=== PATIENT | male | born 1945 | race Caucasian/White ===

== ENCOUNTER 2020-06-21 08:16 | Day surgery (SDC) | payer MEDICARE ==
[~2020-06-21 08:16] MED LIST: Cefuroxime 10 MG/ML SYRINGE EYELF SCH; Lidocaine 1% PF 2 ML SDV INJECT SCH; Pilocarpine 4% Ophth Soln 15 ML Bot EYELF SCH
[2020-06-21] MEDS: Polymyxin B/Trimethoprim 10 ML Bottle EYELF SCH ×3 (09:00→10:43)
[2020-06-21] MEDS: Brimonidine 0.2% Ophth Soln 5 ML Bottle EYELF SCH ×3 (09:06→10:43)
[2020-06-21] MEDS: Phenylephrine 2.5% Ophth Soln 2 ML Bot EYELF SCH ×5 (09:10→10:18)
[2020-06-21] MEDS: Tropicamide 1% Ophth Soln 15 ML Bottle EYELF SCH ×4 (09:16→10:03)
--- NOTE | 2020-06-21 09:18 | PCM.PREANE ---
Preanesthetic Assessment - Procedure Proposed Procedure: cataract left eye - Anesthesia/Transfusion/Family Hx Anesthesia History: Prior Anesthesia Without Reaction Family History of Anesthesia Reaction: No Transfusion History: No Prior Transfusion(s) - Review of Systems General: No Symptoms Pulmonary: Cough (post nasal drip) Cardiovascular: No Symptoms Gastrointestinal: No Symptoms Neurological: No Symptoms Other: Reports: Sinus Problem - Physical Assessment NPO Status Date: 06/20/20 NPO Status Time: 18:30 (sip with pills this am) Vital Signs: 129/82 53 98% 97.9 16 Height: 6 ft 1 in Weight: 83.461 kg ASA Class: 2 Mental Status: Alert & Oriented x3 Airway Class: Mallampati = 1 Dentition: Reports: Caries Thyro-Mental Finger Breadths: 3 Mouth Opening Finger Breadths: 3 ROM/Head Extension: Full Lungs: Clear to Auscultation, Normal Respiratory Effort Cardiovascular: Regular Rate, Regular Rhythm - Allergies Allergies/Adverse Reactions: Allergies Allergy/AdvReac Type Severity Reaction Status Date / Time codeine Allergy Cannot Verified 06/20/20 14:11 Remember - Blood Blood Available: No - Acknowledgements Anesthesia Type Planned: MAC Pt an Appropriate Candidate for the Planned Anesthesia: Yes Alternatives and Risks of Anesthesia Discussed w Pt/Guardian: Yes Pt/Guardian Understands and Agrees with Anesthesia Plan: Yes PreAnesthesia Questionnaire Gastrointestinal History: Reports: GERD Genitourinary History: Reports: Prostate Disorder, Renal Calculus - Past Surgical History HEENT Surgical History: Reports: Adenoidectomy, Tonsillectomy GI Surgical History: Reports: Colonoscopy, Hernia, Inguinal - SUBSTANCE USE Tobacco Use Status *Q: Never Tobacco User Tobacco Use Within Last Twelve Months: No Second Hand Smoke Exposure: No Days Per Week of Alcohol Use: 0 Recreational Drug Use History: No - HOME MEDS Home Medications: Home Meds Finasteride 5 mg PO DAILY 10/03/14 [History] Tamsulosin [Tamsulosin 24 Hr] 0.4 mg PO BID 10/03/14 [History] B2/Vits A,C,E/Lut/Zeaxanth/Min [Icaps] 1 tab PO DAILY 08/02/16 [History] Carboxymethylcellulose Sodium [Artificial Tears] 1 drop EYEBOTH ASDIRECTED PRN 06/20/20 [History] Omeprazole Magnesium [Prilosec Otc] 20 mg PO DAILY 06/20/20 [History] Solifenacin Succinate 10 mg PO DAILY 06/20/20 [History] - CURRENT (IN HOUSE) MEDS Current Meds: Current Medications Brimonidine Tartrate (Alphagan 0.2% Ophth Soln) 0 ml EYELF ASDIRECTED RUBIO Stop: 06/21/20 23:00 Last Admin: 06/21/20 09:06 Dose: 1 drop Documented by: Cefuroxime Sodium (Zinacef) 0 mg EYELF ASDIRECTED RUBIO Stop: 06/21/20 23:00 Lidocaine HCl (Xylocaine-Mpf 1%) 0 ml INJECT ASDIRECTED RUBIO Stop: 06/21/20 23:00 Phenylephrine HCl (Zhao-Synephrine 2.5% Ophth Soln) 0 ml EYELF ASDIRECTED RUBIO Stop: 06/21/20 23:00 Last Admin: 06/21/20 09:10 Dose: 1 drop Documented by: Pilocarpine HCl (Pilocar 4% Ophth Soln) 0 ml EYELF ASDIRECTED RUBIO Stop: 06/21/20 23:00 Polymyxin/Trimethoprim Sulfate (Polytrim Ophth Soln) 0 ml EYELF ASDIRECTED RUBIO Stop: 06/21/20 23:00 Last Admin: 06/21/20 09:00 Dose: 1 drop Documented by: Tetracaine HCl (Tetracaine 0.5% Steri-Unit Jeanette) 0 ml EYEBOTH ASDIRECTED RUBIO Stop: 06/21/20 23:00 Tropicamide (Mydriacyl 1% Ophth Soln) 0 ml EYELF ASDIRECTED RUBIO Stop: 06/21/20 23:00
[2020-06-21] MEDS: Tetracaine HCl/PF 0.5% 4 ML Bottle EYEBOTH SCH ×4 (10:06→10:28)
--- NOTE | 2020-06-21 10:45 | PCM48HPAN ---
Post Anesthesia Note - EVALUATION WITHIN 48HRS OF ANESTHETIC Vital Signs in Normal Range: Yes Patient Participated in Evaluation: Yes Respiratory Function Stable: Yes Airway Patent: Yes Cardiovascular Function Stable: Yes Hydration Status Stable: Yes Pain Control Satisfactory: Yes Nausea and Vomiting Control Satisfactory: Yes Mental Status Recovered: Yes Vital Signs: Last Vital Signs Temp 36.6 C 06/21/20 08:45 Pulse 53 L 06/21/20 08:45 Resp 16 06/21/20 08:45 BP 129/82 06/21/20 08:45 Pulse Ox 98 06/21/20 08:45
[2020-06-21 11:24] VITALS: BP 110/67; PULSE 50
== END 2020-06-21 11:15 | disposition home or self-care (01) ==
LOC: JD.SDS 08:16
PROVIDERS: ATTEND Ophthalmology
DX: H25.813 Combined forms of age-related cataract, bilateral (principal); H40.003 Preglaucoma, unspecified, bilateral; H44.23 Degenerative myopia, bilateral; H43.813 Vitreous degeneration, bilateral; H16.103 Unspecified superficial keratitis, bilateral; H16.223 Keratoconjunctivitis sicca, not specified as Sjogren's, bilateral; Z88.5 Allergy status to narcotic agent; Z79.899 Other long term (current) drug therapy; Z98.890 Other specified postprocedural states
CPT/HCPCS: 66984; C1780; J0697; J2001

== ENCOUNTER 2020-07-31 08:17 | Day surgery (SDC) | payer MEDICARE ==
[~2020-07-31 08:17] MED LIST changes: -Cefuroxime 10 MG/ML SYRINGE EYELF SCH; +Cefuroxime 10 MG/ML SYRINGE EYERT SCH; -Pilocarpine 4% Ophth Soln 15 ML Bot EYELF SCH; +Pilocarpine 4% Ophth Soln 15 ML Bot EYERT SCH
[2020-07-31] MEDS: Polymyxin B/Trimethoprim 10 ML Bottle EYERT SCH ×3 (09:25→11:18)
--- NOTE | 2020-07-31 09:29 | PCM.PREANE ---
Preanesthetic Assessment - Procedure Proposed Procedure: Rt eye cataract excision /c IOL - Anesthesia/Transfusion/Family Hx Anesthesia History: Prior Anesthesia Without Reaction Transfusion History: No Prior Transfusion(s) - Review of Systems General: No Symptoms Pulmonary: Cough Cardiovascular: No Symptoms Gastrointestinal: No Symptoms Neurological: No Symptoms Other: Reports: Sinus Problem - Physical Assessment NPO Status Date: 07/30/20 NPO Status Time: 18:30 Vital Signs: Last Vital Signs Temp 98.0 F 07/31/20 09:10 Pulse 51 L 07/31/20 09:10 Resp 16 07/31/20 09:10 BP 131/77 07/31/20 09:10 Pulse Ox 97 07/31/20 09:10 Height: 1.83 m Weight: 83.461 kg ASA Class: 2 Mental Status: Alert & Oriented x3 Airway Class: Mallampati = 1 Dentition: Reports: Caries Thyro-Mental Finger Breadths: 3 Mouth Opening Finger Breadths: 3 ROM/Head Extension: Full Lungs: Clear to Auscultation, Normal Respiratory Effort Cardiovascular: Regular Rate, Regular Rhythm - Allergies Allergies/Adverse Reactions: Allergies Allergy/AdvReac Type Severity Reaction Status Date / Time codeine Allergy Cannot Verified 07/30/20 13:36 Remember - Acknowledgements Anesthesia Type Planned: MAC Pt an Appropriate Candidate for the Planned Anesthesia: Yes Alternatives and Risks of Anesthesia Discussed w Pt/Guardian: Yes Pt/Guardian Understands and Agrees with Anesthesia Plan: Yes PreAnesthesia Questionnaire Gastrointestinal History: Reports: GERD Genitourinary History: Reports: Prostate Disorder, Renal Calculus - Past Surgical History HEENT Surgical History: Reports: Adenoidectomy, Tonsillectomy GI Surgical History: Reports: Colonoscopy, Hernia, Inguinal - HOME MEDS Home Medications: Home Meds Finasteride 5 mg PO DAILY 10/03/14 [History] Tamsulosin [Tamsulosin 24 Hr] 0.4 mg PO BID 10/03/14 [History] B2/Vits A,C,E/Lut/Zeaxanth/Min [Icaps] 1 tab PO DAILY 08/02/16 [History] Carboxymethylcellulose Sodium [Artificial Tears] 1 drop EYEBOTH ASDIRECTED PRN 06/20/20 [History] Omeprazole Magnesium [Prilosec Otc] 20 mg PO DAILY 06/20/20 [History] Solifenacin Succinate 10 mg PO DAILY 06/20/20 [History] - CURRENT (IN HOUSE) MEDS Current Meds: Current Medications Brimonidine Tartrate (Alphagan 0.2% Ophth Soln) 0 ml EYERT ASDIRECTED RUBIO Stop: 07/31/20 18:00 Cefuroxime Sodium (Zinacef) 0 mg EYERT ASDIRECTED RUBIO Stop: 07/31/20 18:00 Lidocaine HCl (Xylocaine-Mpf 1%) 0 ml INJECT ASDIRECTED RUBIO Stop: 07/31/20 18:00 Phenylephrine HCl (Zhao-Synephrine 2.5% Ophth Soln) 0 ml EYERT ASDIRECTED RUBIO Stop: 07/31/20 18:00 Pilocarpine HCl (Pilocar 4% Ophth Soln) 0 ml EYERT ASDIRECTED RUBIO Stop: 07/31/20 18:00 Polymyxin/Trimethoprim Sulfate (Polytrim Ophth Soln) 0 ml EYERT ASDIRECTED RUBIO Stop: 07/31/20 18:00 Tetracaine HCl (Tetracaine 0.5% Steri-Unit Jeanette) 0 ml EYEBOTH ASDIRECTED RUBIO Stop: 07/31/20 18:00 Tropicamide (Mydriacyl 1% Ophth Soln) 0 ml EYERT ASDIRECTED RUBIO Stop: 07/31/20 18:00
[2020-07-31] MEDS: Brimonidine 0.2% Ophth Soln 5 ML Bottle EYERT SCH ×3 (09:30→11:18)
[2020-07-31] MEDS: Phenylephrine 2.5% Ophth Soln 15 ML Bot EYERT SCH ×5 (09:35→10:54)
[2020-07-31] MEDS: Tropicamide 1% Ophth Soln 15 ML Bottle EYERT SCH ×4 (09:40→10:36)
[2020-07-31] MEDS: Tetracaine HCl/PF 0.5% 4 ML Bottle EYEBOTH SCH ×4 (10:40→11:07)
--- NOTE | 2020-07-31 11:22 | PCM48HPAN ---
Post Anesthesia Note - EVALUATION WITHIN 48HRS OF ANESTHETIC Vital Signs in Normal Range: Yes Patient Participated in Evaluation: Yes Respiratory Function Stable: Yes Airway Patent: Yes Cardiovascular Function Stable: Yes Hydration Status Stable: Yes Pain Control Satisfactory: Yes Nausea and Vomiting Control Satisfactory: Yes Mental Status Recovered: Yes Vital Signs: post: 122/85, 49, 16, 98% Last Vital Signs Temp 98.0 F 07/31/20 09:10 Pulse 51 L 07/31/20 09:10 Resp 16 07/31/20 09:10 BP 131/77 07/31/20 09:10 Pulse Ox 97 07/31/20 09:10
[2020-07-31 11:40] VITALS: BP 141/96; PULSE 65
== END 2020-07-31 11:35 | disposition home or self-care (01) ==
LOC: JD.SDS 08:17
PROVIDERS: ATTEND Ophthalmology
DX: H25.811 Combined forms of age-related cataract, right eye (principal); Z79.899 Other long term (current) drug therapy; Z98.890 Other specified postprocedural states; Z88.5 Allergy status to narcotic agent
CPT/HCPCS: 66984; C1780; J0697; J2001

== ENCOUNTER 2024-10-05 11:16 | Emergency (ER) | payer MEDICARE ==
[2024-10-05 12:21] LABS: BASOPHILS PERCENT AUTO 0.6 % (0.0-1.0); EOSINOPHILS ABSOLUTE AUTO 0.1 K/mm3 (0.0-0.4); EOSINOPHILS PERCENT AUTO 2.2 % (0.0-6.0); HEMATOCRIT 44.9 % (42.0-52.0); HEMOGLOBIN 15.6 gm/dl (14.0-18.0); IMMATURE GRAN ABSOLUTE AUTO 0.01 K/mm3 (0.00-0.05); IMMATURE GRAN PERCENT AUTO 0.2 % (0.0-0.4); LYMPHOCYTES ABSOLUTE AUTO 0.8 K/mm3 (1.0-4.8); LYMPHOCYTES PERCENT AUTO 12.1 % (24.0-44.0); MEAN CORPUSCULAR HEMOGLOBIN 33.4 pg (28.0-32.0); MEAN CORPUSCULAR HGB CONC 34.7 g/dl (32.0-36.0); MEAN CORPUSCULAR VOLUME 96.1 fl (83.0-99.0); MEAN PLATELET VOLUME 9.9 fl (9.4-12.4); MONOCYTES ABSOLUTE AUTO 0.6 K/mm3 (0.0-0.8); MONOCYTES PERCENT AUTO 9.1 % (0.0-8.0); NEUTROPHILS ABSOLUTE AUTO 4.8 K/mm3 (1.8-7.7); NEUTROPHILS PERCENT AUTO 75.8 % (41.0-71.0); PLATELET COUNT,PLT 204 K/mm3 (150-400); RED BLOOD CELL COUNT 4.67 M/mm3 (4.52-5.90); WHITE BLOOD CELL COUNT,WBC 6.29 K/mm3 (3.9-11.3)
[2024-10-05 12:36] LABS: APPEARANCE,URINE TURBID (Clear); BILIRUBIN,URINE NEGATIVE (Negative); COLOR,URINE RED (Yellow); GLUCOSE,URINE NEGATIVE (Negative); KETONES,URINE NEGATIVE (Negative); LEUKOCYTE ESTERASE,URINE NEGATIVE (Negative); NITRITE,URINE NEGATIVE (Negative); OCCULT BLOOD,URINE 3+ (Negative); PROTEIN,URINE 3+ (Negative); UROBILINOGEN,URINE 0.2 (0.2-1.0)
[2024-10-05 12:43] LABS: BACTERIA,URINE RARE /hpf (FEW); MUCUS,URINE NOT SEEN /hpf (FEW); RBC,URINE TOO NUMEROUS TO CNT /hpf (0-5); WBC,URINE 0-5 /hpf (0-5)
[2024-10-05 12:45] LABS: A/G RATIO 1.3 (1-2); ALBUMIN 3.8 g/dl (3.4-5.0); ANION GAP 9.9 (5-15); BILIRUBIN TOTAL 0.7 mg/dL (0.2-1.0); CALCIUM 9.4 mg/dL (8.5-10.1); EST CRCL DRUG DOSING (CG) 68.98 mL/min; POTASSIUM,K 4.9 mEq/L (3.5-5.1); PROTEIN TOTAL,TP 6.7 g/dl (6.4-8.2)
[2024-10-05 13:39] VITALS: BP 152/91; PULSE 52
== END 2024-10-05 13:00 | disposition home or self-care (01) ==
LOC: JD.ED 11:16
DX: R31.0 Gross hematuria (principal); Z88.5 Allergy status to narcotic agent; Z79.899 Other long term (current) drug therapy
CPT/HCPCS: 36415; 51798; 80053; 81001; 85025; 99283